=== PATIENT | female | born 1940 | race Caucasian/White ===

== ENCOUNTER 2016-12-26 13:56 | Emergency (ER) | payer MEDICARE ==
[~2016-12-26 13:56] MED LIST: BACLOFEN 10MG T10 MG PO; NORVASC5 MG PO; PRINIVIL10 MG PO; ULTRAM50 MG PO
== END 2016-12-26 17:23 | disposition home or self-care (01) ==
LOC: FER 13:56
DX: K59.00 Constipation, unspecified (principal); I10 Essential (primary) hypertension; G89.29 Other chronic pain; Z88.0 Allergy status to penicillin
CPT/HCPCS: J2212

== ENCOUNTER 2016-12-31 11:44 | Emergency (ER) | payer MEDICARE ==
[2016-12-31 13:55] LABS: EOSINOPHIL 2.9 % (0-7); HCT 38.4 % (37.0-47.0); HGB 12.8 g/dl (12.5-16.0); LYMPHOCYTE 28.9 % (15-48); MCHC 33.3 g/dL (32.0-36.0); MONOCYTE 8.4 % (0-12); NEUTROPHIL 58.8 % (41-80); PLT 289 K/uL (150-400); RBC 3.88 M/uL (4.20-5.40); RDW 12.6 % (11.5-14.0); WBC 6.2 K/uL (4.0-10.5)
[2016-12-31 14:04] LABS: ALBUMIN 4.5 g/dL (3.4-4.8); BILIRUBIN - TOTAL 0.4 mg/dL (0.1-1.0); CREATININE 0.6 mg/dL (0.5-1.0); GLOBULIN (CALCULATION) 3.3 g/dL (2.2-4.2); POTASSIUM 4.3 mmol/L (3.5-5.1); TOTAL PROTEIN 7.8 g/dL (6.4-8.3)
[2016-12-31 14:44] LABS: BILIRUBIN NEGATIVE (NEGATIVE); BLOOD TRACE-INTACT Ery/uL (NEGATIVE); CLARITY CLEAR (CLEAR); COLOR YELLOW (YELLOW); GLUCOSE (U) NORMAL (NORMAL); KETONE (U) NEGATIVE (NEGATIVE); LEUKOCYTES NEGATIVE Leu/uL (NEGATIVE); NITRITE NEGATIVE (NEGATIVE); PROTEIN NEGATIVE (NEGATIVE); UROBILINOGEN 0.2 mg/dL (0.2-1.0)
[2016-12-31 15:06] LABS: BACTERIA TRACE
[2016-12-31 15:07] LABS: URINARY WBC RARE
== END 2016-12-31 15:36 | disposition home or self-care (01) ==
LOC: FER 11:44
PROVIDERS: Emergency Medicine
DX: R14.3 Flatulence (principal); R10.84 Generalized abdominal pain; R11.0 Nausea; I10 Essential (primary) hypertension; M54.9 Dorsalgia, unspecified; G89.29 Other chronic pain; Z79.899 Other long term (current) drug therapy
CPT/HCPCS: 36415; 74000; 80053; 81001; 85025

== ENCOUNTER 2017-03-28 14:15 | Emergency (ER) | payer MEDICARE ==
[2017-03-28 17:43] LABS: BILIRUBIN NEGATIVE (NEGATIVE); BLOOD NEGATIVE Ery/uL (NEGATIVE); CLARITY CLEAR (CLEAR); COLOR YELLOW (YELLOW); GLUCOSE (U) NORMAL (NORMAL); KETONE (U) NEGATIVE (NEGATIVE); LEUKOCYTES NEGATIVE Leu/uL (NEGATIVE); NITRITE NEGATIVE (NEGATIVE); PROTEIN NEGATIVE (NEGATIVE); SPECIFIC GRAVITY 1.015 (1.001-1.030); UROBILINOGEN 0.2 mg/dL (0.2-1.0)
[2017-03-28 17:46] LABS: BASOPHIL 1.2 % (0-2); EOSINOPHIL 6.9 % (0-7); HCT 35.6 % (37.0-47.0); HGB 11.9 g/dl (12.5-16.0); LYMPHOCYTE 35.7 % (15-48); MCH 33.2 pg (25.0-31.0); MCHC 33.4 g/dL (32.0-36.0); MCV 99.4 fL (78.0-100.0); MONOCYTE 10.7 % (0-12); MPV 9.6 fL (6.0-9.5); NEUTROPHIL 45.5 % (41-80); PLT 257 K/uL (150-400); RBC 3.58 M/uL (4.20-5.40); RDW 14.2 % (11.5-14.0); WBC 6.6 K/uL (4.0-10.5)
[2017-03-28 18:04] LABS: BENZODIAZEPINES NEGATIVE (NEGATIVE); COCAINE NEGATIVE (NEGATIVE)
[2017-03-28 18:05] LABS: AMPHETAMINES NEGATIVE (NEGATIVE); BARBITURATES NEGATIVE (NEGATIVE); MARIJUANA (THC) NEGATIVE (NEGATIVE); METHADONE NEGATIVE (NEGATIVE); TRICYCLIC ANTIDEPRESSANT NEGATIVE (NEGATIVE)
[2017-03-28 18:13] LABS: ALBUMIN 4.4 g/dL (3.4-4.8); BILIRUBIN - TOTAL 0.2 mg/dL (0.1-1.0); CREATININE 0.7 mg/dL (0.5-1.0); GLOBULIN (CALCULATION) 2.4 g/dL (2.2-4.2); POTASSIUM 4.8 mmol/L (3.5-5.1); TOTAL PROTEIN 6.8 g/dL (6.4-8.3)
== END 2017-03-28 18:52 | disposition home or self-care (01) ==
LOC: FER 14:15
PROVIDERS: Emergency Medicine
DX: R25.2 Cramp and spasm (principal); R41.0 Disorientation, unspecified; I10 Essential (primary) hypertension; Z79.899 Other long term (current) drug therapy
CPT/HCPCS: 36415; 80053; 80305; 81003; 85025; 99283

== ENCOUNTER 2021-09-06 15:08 | Emergency (ER) | payer OTHER ==
[~2021-09-06 15:08] MED LIST changes: +CALCIUM MAGNESIUM PO; +CERTAGEN1 EACH PO; +CIPRO500 MG PO; +CLARITIN10 MG PO; +COQ10 PO; +LASIX20 MG PO; +LEXAPRO 10MG TA10 MG PO; +METRONIDAZOLE500 MG PO; +NORCO 5-325 TA1 EACH PO; +VITAMIN D35000 UNI1 PO; +[UNRECOGNIZED DRUG - REMARK] PO
== END 2021-09-06 19:04 | disposition home or self-care (01) ==
LOC: FER 15:08
DX: S22.41XA Multiple fractures of ribs, right side, initial encounter for closed fracture (principal); I10 Essential (primary) hypertension; J44.9 Chronic obstructive pulmonary disease, unspecified; Z88.0 Allergy status to penicillin; W18.30XA Fall on same level, unspecified, initial encounter; Y93.01 Activity, walking, marching and hiking; Y92.009 Unspecified place in unspecified non-institutional (private) residence as the place of occurrence of the external cause
CPT/HCPCS: 71101

== ENCOUNTER 2022-05-29 16:04 | Emergency (ER) | payer OTHER | END 2022-05-29 17:40 | disposition home or self-care (01) | LOC: FER 16:04 | DX: M25.561 Pain in right knee (principal); Z87.891 Personal history of nicotine dependence; Z88.0 Allergy status to penicillin; Z88.1 Allergy status to other antibiotic agents | CPT/HCPCS: 73564; 93971 ==

== ENCOUNTER 2022-06-04 15:31 | Emergency (ER) | payer OTHER ==
[2022-06-04 18:23] LABS: BASOPHIL 1.1 % (0-2); EOSINOPHIL 10.3 % (0-7); HCT 42.2 % (37.0-47.0); HGB 13.6 g/dl (12.5-16.0); LYMPHOCYTE 27.8 % (15-48); MCH 31.6 pg (25.0-31.0); MCHC 32.2 g/dL (32.0-36.0); MCV 97.9 fL (78.0-100.0); MONOCYTE 10.3 % (0-12); MPV 11.4 fL (6.0-9.5); NEUTROPHIL 49.7 % (41-80); NRBC 0; PLT 333 K/uL (150-400); RBC 4.31 M/uL (4.20-5.40); RDW 14.3 % (11.5-14.0); WBC 9.1 K/uL (4.0-10.5)
[2022-06-04 18:43] LABS: ALBUMIN 3.3 g/dL (3.4-5.0); BILIRUBIN - TOTAL 0.3 mg/dL (0.2-1.0); BUN/CREAT RATIO (CALC) 27.9 RATIO; CREATININE 0.61 mg/dL (0.51-0.95); GLOBULIN (CALCULATION) 4.1 g/dL; POTASSIUM 4.9 mmol/L (3.5-5.1); TOTAL PROTEIN 7.4 g/dL (6.4-8.2)
[2022-06-04] MEDS ORDERED: PREDNISONE 20MG20 MG PO (20:14)
[2022-06-04] MEDS ORDERED: VIBRAMYCIN100 MG PO (20:14)
[2022-06-04] MEDS ORDERED: MUCINEX DM ER1 EACH PO (20:15)
== END 2022-06-04 20:43 | disposition home or self-care (01) ==
LOC: FER 15:31
PROVIDERS: Emergency Medicine
DX: J20.9 Acute bronchitis, unspecified (principal); J84.10 Pulmonary fibrosis, unspecified; Z88.0 Allergy status to penicillin; Z88.1 Allergy status to other antibiotic agents
CPT/HCPCS: 36415; 71046; 80053; 84443; 84484; 85025; 93005; J1100

== ENCOUNTER 2022-06-14 11:24 | Emergency (ER) | payer OTHER ==
[~2022-06-14 11:24] MED LIST changes: +MUCINEX DM ER1 EACH PO; +PREDNISONE 20MG20 MG PO; +VIBRAMYCIN100 MG PO
[2022-06-14 12:38] LABS: BASOPHIL 1.1 % (0-2); EOSINOPHIL 6.2 % (0-7); HCT 39.1 % (37.0-47.0); HGB 12.7 g/dl (12.5-16.0); LYMPHOCYTE 23.6 % (15-48); MCH 31.5 pg (25.0-31.0); MCHC 32.5 g/dL (32.0-36.0); MONOCYTE 11.1 % (0-12); MPV 10.5 fL (6.0-9.5); NRBC 0; PLT 244 K/uL (150-400); RBC 4.03 M/uL (4.20-5.40); RDW 14.8 % (11.5-14.0); WBC 9.7 K/uL (4.0-10.5)
[2022-06-14 12:46] LABS: INR 1.08 (0.9-1.2); PROTHROMBIN TIME 13.7 SECONDS (11.9-13.9)
[2022-06-14 12:47] LABS: PTT 31.4 SECONDS (24.9-34.6)
[2022-06-14 13:04] LABS: ALBUMIN 2.9 g/dL (3.4-5.0); BILIRUBIN - TOTAL 0.7 mg/dL (0.2-1.0); BUN/CREAT RATIO (CALC) 34.7 RATIO; CREATININE 0.72 mg/dL (0.51-0.95); GLOBULIN (CALCULATION) 2.9 g/dL; POTASSIUM 4.4 mmol/L (3.5-5.1); TOTAL PROTEIN 5.8 g/dL (6.4-8.2)
[2022-06-14 13:04] LABS: BILIRUBIN NEGATIVE (NEGATIVE); BLOOD NEGATIVE Ery/uL (NEGATIVE); CLARITY CLEAR (CLEAR); COLOR YELLOW (YELLOW); GLUCOSE (U) NORMAL (NORMAL); LEUKOCYTES TRACE Leu/uL (NEGATIVE); NITRITE NEGATIVE (NEGATIVE); PROTEIN NEGATIVE (NEGATIVE); UROBILINOGEN 0.2 mg/dL (0.2-1.0); pH 6.5 (5.0-9.0)
[2022-06-14 13:10] LABS: URINARY WBC RARE
== END 2022-06-14 14:30 | disposition home or self-care (01) ==
LOC: FER 11:24
PROVIDERS: Emergency Medicine
DX: S70.02XA Contusion of left hip, initial encounter (principal); S30.0XXA Contusion of lower back and pelvis, initial encounter; F03.90 Unspecified dementia, unspecified severity, without behavioral disturbance, psychotic disturbance, mood disturbance, and anxiety; J44.9 Chronic obstructive pulmonary disease, unspecified; Z87.891 Personal history of nicotine dependence; Z91.048 Other nonmedicinal substance allergy status; Z79.899 Other long term (current) drug therapy; W19.XXXA Unspecified fall, initial encounter; Z20.822 Contact with and (suspected) exposure to COVID-19
CPT/HCPCS: 36415; 70450; 71045; 72131; 72192; 80053; 81001; 82553; 84443; 84484; 85025; 85610; 85730; U0002

== ENCOUNTER 2022-06-21 12:43 | Emergency (ER) | payer OTHER ==
[2022-06-21 14:30] LABS: EOSINOPHIL 5.6 % (0-7); HCT 37.9 % (37.0-47.0); HGB 12.5 g/dl (12.5-16.0); LYMPHOCYTE 23.6 % (15-48); MCH 32.2 pg (25.0-31.0); MCV 97.7 fL (78.0-100.0); MONOCYTE 7.8 % (0-12); MPV 10.2 fL (6.0-9.5); NEUTROPHIL 61.4 % (41-80); NRBC 0; PLT 243 K/uL (150-400); RBC 3.88 M/uL (4.20-5.40); RDW 15.4 % (11.5-14.0); WBC 7.9 K/uL (4.0-10.5)
[2022-06-21 14:50] LABS: ALBUMIN 2.9 g/dL (3.4-5.0); BILIRUBIN - TOTAL 0.6 mg/dL (0.2-1.0); BUN/CREAT RATIO (CALC) 17.6 RATIO; CREATININE 0.68 mg/dL (0.51-0.95); GLOBULIN (CALCULATION) 3.2 g/dL; POTASSIUM 4.9 mmol/L (3.5-5.1); TOTAL PROTEIN 6.1 g/dL (6.4-8.2)
[2022-06-21 15:14] LABS: CORONAVIRUS 2019 SARS-COV-2 NEGATIVE (NEGATIVE); INFLUENZA A NAA NEGATIVE (NEGATIVE)
[2022-06-21] MEDS ORDERED: MEDROL 4MG DOSEP4 MG PO (19:42)
[2022-06-21 20:11] LABS: BILIRUBIN NEGATIVE (NEGATIVE); BLOOD NEGATIVE Ery/uL (NEGATIVE); CLARITY CLEAR (CLEAR); COLOR YELLOW (YELLOW); GLUCOSE (U) NORMAL (NORMAL); LEUKOCYTES NEGATIVE Leu/uL (NEGATIVE); NITRITE NEGATIVE (NEGATIVE); PROTEIN NEGATIVE (NEGATIVE); UROBILINOGEN 0.2 mg/dL (0.2-1.0); pH 6.5 (5.0-9.0)
[2022-06-21 20:16] LABS: SQUAMOUS EPITHELIAL CELLS RARE
== END 2022-06-21 21:26 | disposition home or self-care (01) ==
LOC: FER 12:43
PROVIDERS: Emergency Medicine
DX: J44.1 Chronic obstructive pulmonary disease with (acute) exacerbation (principal); I10 Essential (primary) hypertension; Z20.822 Contact with and (suspected) exposure to COVID-19; Z88.0 Allergy status to penicillin; Z88.1 Allergy status to other antibiotic agents; Z87.891 Personal history of nicotine dependence
CPT/HCPCS: 36415; 71045; 80053; 81001; 85025; 93005; J0696; J2270; J2405; J2930; J7040; U0002